=== PATIENT | male | born 1965 | race African-American/Black ===

== ENCOUNTER 2019-01-26 13:18 | Emergency (ER) | payer OTHER ==
[~2019-01-26] VITALS: Ht 188 cm; Wt 111.1 kg
[2019-01-26 13:25] VITALS: BP 146/85
--- NOTE | 2019-01-26 13:35 | NUR ---
PT AMBULATED TO ER BED 11
--- NOTE | 2019-01-26 13:38 | NUR ---
PT BIB SELF FOR RT ARM PAIN FOR 2 WEEKS. PT DENIES ANY RECENT TRAUMA TO ARM OR HEAVY LIFTING. PAIN IS TO ELBOW AREA MORE W/ MOVEMENT. +CMS. PT SITTING IN BED IN NO ACUTE DISTRESS.
--- NOTE | 2019-01-26 14:24 | NUR ---
Seen and evaluated by provider, MSE completed.
[2019-01-26] MEDS ORDERED: IBUPROFEN 600 MG TAB PO ONE (14:30)
[2019-01-26 14:52] VITALS: BP 145/82
== END 2019-01-26 14:51 | disposition home or self-care (01) ==
LOC: MED 13:18
DX: S46.811A Strain of other muscles, fascia and tendons at shoulder and upper arm level, right arm, initial encounter (principal); E11.9 Type 2 diabetes mellitus without complications; I10 Essential (primary) hypertension; X58.XXXA Exposure to other specified factors, initial encounter; Y93.89 Activity, other specified; Y92.89 Other specified places as the place of occurrence of the external cause; Y99.8 Other external cause status
CPT/HCPCS: 99282

== ENCOUNTER 2020-08-02 12:05 | Emergency (ER) | payer OTHER ==
[~2020-08-02] VITALS: Ht 190.5 cm; Wt 108.4 kg
[2020-08-02 12:10] VITALS: BP 144/83
[2020-08-02 13:08] LABS: BASOPHILS % (AUTO) 0.5 % (0.0-2.0); EOSINOPHILS # (AUTO) 0.1 K/uL (0-0.4); EOSINOPHILS % (AUTO) 2.7 % (0.0-4.0); HEMATOCRIT 34.5 % (36-52); HEMOGLOBIN 11.5 g/dL (12.0-18.0); LYMPHOCYTES # (AUTO) 1.3 K/uL (2.0-11.5); LYMPHOCYTES % (AUTO) 25.2 % (20.5-51.1); MEAN CORPUSCULAR HEMOGLOBIN 29 pg (27-31); MEAN CORPUSCULAR HGB CONC 34 g/dL (33-37); MONOCYTES # (AUTO) 0.4 K/uL (0.8-1.0); MONOCYTES % (AUTO) 8.3 % (1.7-9.3); NEUTROPHILS # (AUTO) 3.2 K/uL (1.8-7.7); NEUTROPHILS % (AUTO) 63.3 % (42.2-75.2); PLATELET COUNT (AUTO) 123 K/uL (140-450); RED BLOOD CELL COUNT(AUTO) 4.01 MIL/uL (4.20-6.10); RED CELL DISTRIBUTION WIDTH 13.7 % (11.6-13.7); WHITE BLOOD COUNT (AUTO) 5.1 K/uL (4.8-10.8)
[2020-08-02 13:29] LABS: ALBUMIN 4.1 g/dL (3.4-5.0); CARBON DIOXIDE 26.5 mmol/L (21-32); CREATININE 1.3 mg/dL (0.6-1.3); POTASSIUM 4.5 mmol/L (3.5-5.1); TOTAL BILIRUBIN 0.4 mg/dL (0.0-1.0)
[2020-08-02] MEDS ORDERED: IBUP-2213 PO (13:54)
[2020-08-02 14:07] VITALS: BP 144/83
== END 2020-08-02 14:08 | disposition home or self-care (01) ==
LOC: MED 12:05
DX: M25.512 Pain in left shoulder (principal); M54.6 Pain in thoracic spine; E11.9 Type 2 diabetes mellitus without complications; I10 Essential (primary) hypertension
CPT/HCPCS: 36415; 71045; 80053; 83690; 84484; 85025; 93005; 99285

== ENCOUNTER 2021-01-30 09:54 | Emergency (ER) | payer OTHER ==
[~2021-01-30] VITALS: Ht 190.5 cm; Wt 103.9 kg
[~2021-01-30 09:54] MED LIST: IBUP-2213 PO
[2021-01-30 10:01] VITALS: BP 152/78
[2021-01-30] MEDS ORDERED: KETOROLAC 30 MG/ML VIAL IM ONE (10:20)
[2021-01-30 10:53] LABS: BASOPHILS % (AUTO) 0.2 % (0.0-2.0); EOSINOPHILS # (AUTO) 0.1 K/uL (0-0.4); EOSINOPHILS % (AUTO) 2.2 % (0.0-4.0); HEMATOCRIT 37.1 % (36-52); HEMOGLOBIN 12.5 g/dL (12.0-18.0); LYMPHOCYTES % (AUTO) 15.1 % (20.5-51.1); MEAN CORPUSCULAR HEMOGLOBIN 29 pg (27-31); MEAN CORPUSCULAR HGB CONC 34 g/dL (33-37); MEAN CORPUSCULAR VOLUME 84.9 fL (80-94); MONOCYTES # (AUTO) 0.4 K/uL (0.8-1.0); MONOCYTES % (AUTO) 6.2 % (1.7-9.3); NEUTROPHILS # (AUTO) 4.9 K/uL (1.8-7.7); NEUTROPHILS % (AUTO) 76.3 % (42.2-75.2); PLATELET COUNT (AUTO) 150 K/uL (140-450); RED BLOOD CELL COUNT(AUTO) 4.37 MIL/uL (4.20-6.10); RED CELL DISTRIBUTION WIDTH 13.8 % (11.6-13.7); WHITE BLOOD COUNT (AUTO) 6.4 K/uL (4.8-10.8)
[2021-01-30 11:00] LABS: ANION GAP 13.3 (8-16); CARBON DIOXIDE 27.1 mmol/L (21-32); CREATININE 1.9 mg/dL (0.6-1.3); POTASSIUM 4.4 mmol/L (3.5-5.1)
[2021-01-30] MEDS ORDERED: NACL 0.9% 2,000 ML IV ONE (11:20)
[2021-01-30 12:46] VITALS: BP 136/71
== END 2021-01-30 12:46 | disposition home or self-care (01) ==
LOC: MED 09:54
DX: E11.65 Type 2 diabetes mellitus with hyperglycemia (principal); M79.10 Myalgia, unspecified site; R51.9 Headache, unspecified; M54.2 Cervicalgia; I10 Essential (primary) hypertension; Z79.899 Other long term (current) drug therapy
CPT/HCPCS: 36415; 72040; 80048; 81002; 85025; 96360; 96372; 99284; J1885; J7030; 81025

== ENCOUNTER 2021-02-03 11:35 | Emergency (ER) | payer OTHER ==
[~2021-02-03] VITALS: Ht 190.5 cm; Wt 103.0 kg
[2021-02-03 12:06] VITALS: BP 150/86
--- NOTE | 2021-02-03 13:46 | NUR ---
FLU SWAB DONE.
[2021-02-03 13:58] LABS: BASOPHILS # (AUTO) 0.1 K/uL (0.00-0.22); BASOPHILS % (AUTO) 0.8 % (0.0-2.0); EOSINOPHILS # (AUTO) 0.2 K/uL (0-0.4); EOSINOPHILS % (AUTO) 2.9 % (0.0-4.0); HEMATOCRIT 38.7 % (36-52); HEMOGLOBIN 13.1 g/dL (12.0-18.0); LYMPHOCYTES # (AUTO) 1.6 K/uL (2.0-11.5); LYMPHOCYTES % (AUTO) 22.6 % (20.5-51.1); MEAN CORPUSCULAR HEMOGLOBIN 29 pg (27-31); MEAN CORPUSCULAR HGB CONC 34 g/dL (33-37); MEAN CORPUSCULAR VOLUME 84.6 fL (80-94); MONOCYTES # (AUTO) 0.4 K/uL (0.8-1.0); MONOCYTES % (AUTO) 5.7 % (1.7-9.3); NEUTROPHILS # (AUTO) 4.9 K/uL (1.8-7.7); PLATELET COUNT (AUTO) 197 K/uL (140-450); RED BLOOD CELL COUNT(AUTO) 4.58 MIL/uL (4.20-6.10); RED CELL DISTRIBUTION WIDTH 13.8 % (11.6-13.7); WHITE BLOOD COUNT (AUTO) 7.2 K/uL (4.8-10.8)
[2021-02-03 14:25] LABS: APPEARANCE,URINE CLEAR (CLEAR); BILIRUBIN,URINE NEGATIVE (NEGATIVE); BLOOD, URINE NEGATIVE (NEGATIVE); COLOR,URINE YELLOW (YELLOW); LEUKOCYTE ESTERASE ,URINE NEGATIVE (NEGATIVE); NITRITE, URINE NEGATIVE (NEGATIVE); PH,URINE 5.5 (5.0-9.0); UGLUCOSE 1+ (NEGATIVE)
[2021-02-03 14:34] LABS: ALBUMIN 4.4 g/dL (3.4-5.0); ANION GAP 16.4 (8-16); CARBON DIOXIDE 25.7 mmol/L (21-32); CREATININE 1.9 mg/dL (0.6-1.3); POTASSIUM 4.1 mmol/L (3.5-5.1); TOTAL BILIRUBIN 0.5 mg/dL (0.0-1.0)
[2021-02-03 14:51] VITALS: BP 150/86
--- NOTE | 2021-02-03 14:51 | NUR ---
Patient discharged with v/s stable. Written and verbal after care instructions given and explained. Patient verbalized understanding. Ambulatory with steady gait. All questions addressed prior to discharge. Advised to follow up with PMD.
== END 2021-02-03 14:51 | disposition home or self-care (01) ==
LOC: MED 11:35
DX: M79.18 Myalgia, other site (principal); E11.9 Type 2 diabetes mellitus without complications; I10 Essential (primary) hypertension; E78.5 Hyperlipidemia, unspecified; Z79.1 Long term (current) use of non-steroidal anti-inflammatories (NSAID)
CPT/HCPCS: 36415; 80053; 81003; 85025; 87804; 99283

== ENCOUNTER 2023-08-12 22:21 | Emergency (ER) | payer OTHER ==
[~2023-08-12] VITALS: Ht 188 cm; Wt 106.1 kg
[2023-08-12 22:38] VITALS: BP 128/78; PULSE 72; RESP 18; TEMP 98.3; O2SAT 99
== END 2023-08-12 23:49 | disposition left against medical advice (07) ==
LOC: MED 22:21
DX: M79.601 Pain in right arm (principal); Z53.21 Procedure and treatment not carried out due to patient leaving prior to being seen by health care provider

== ENCOUNTER 2023-12-10 22:59 | Emergency (ER) | payer OTHER ==
[~2023-12-10] VITALS: Ht 188 cm; Wt 107.1 kg
[2023-12-10 23:13] VITALS: BP 127/81; PULSE 77; RESP 20; TEMP 98.3; O2SAT 96
[2023-12-11] MEDS: KETOROLAC 30 MG/ML VIAL IM ONE (00:30)
[2023-12-11 01:10] VITALS: BP 127/81; PULSE 77; RESP 20; TEMP 98.3; O2SAT 96
== END 2023-12-11 01:10 | disposition home or self-care (01) ==
LOC: MED 22:59
DX: S39.011A Strain of muscle, fascia and tendon of abdomen, initial encounter (principal); E11.9 Type 2 diabetes mellitus without complications; I10 Essential (primary) hypertension; Z79.899 Other long term (current) drug therapy; X58.XXXA Exposure to other specified factors, initial encounter; Y92.89 Other specified places as the place of occurrence of the external cause; Y93.89 Activity, other specified; Y99.8 Other external cause status
CPT/HCPCS: 93005; 96372; 99283; J1885